=== PATIENT | female | born 1935 | race Caucasian/White ===

== ENCOUNTER 2021-10-07 11:47 | Emergency (ER) | payer OTHER, BC ==
[2021-10-07 11:58] VITALS: BP 133/90; PULSE 78; RESP 18; TEMP 97.6
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
[2021-10-07] MEDS ORDERED: KETOROLAC 15 MG/ML 1 ML VIAL IM STA (14:23)
== END 2021-10-07 15:08 | disposition home or self-care (01) ==
LOC: EC 11:47
DX: S22.39XA Fracture of one rib, unspecified side, initial encounter for closed fracture (principal); I10 Essential (primary) hypertension; E11.9 Type 2 diabetes mellitus without complications; W22.09XA Striking against other stationary object, initial encounter; Z88.5 Allergy status to narcotic agent
CPT/HCPCS: 73010; 71046; 72125; 70450; 99284; 96372; J1885